=== PATIENT | female | born 1990 | race Caucasian/White ===

== ENCOUNTER → 2016-09-05 | Outpatient (REF) | payer OTHER ==
[~2016-09-05] MED LIST: /MOM400 PO; ACET50TA PO; ANUS2.5C2 TOP; BCP; CEPACOL PO; DOCU10ELUD PO; IBUP80TA PO; MELO15TA4 PO; MULTCAP PO; NORE0.353 PO; PRENTAB66 PO; VITA10006 PO; ZOLO50TA PO; ZYRT10CA PO; [UNRECOGNIZED DRUG - OTHER] PO
== END ==
LOC: M LAB REF 17:00
PROVIDERS: ATTEND Specialist
DX: R87.610 Atypical squamous cells of undetermined significance on cytologic smear of cervix (ASC-US) (principal)

== ENCOUNTER → 2017-02-16 | Outpatient (CLI) | payer OTHER ==
[2017-02-16 13:37] LABS: BASO % 0.3 % (0.0-1.0); EOS % 1.4 % (0.0-3.0); LARGE UNSTAINED CELL % 0.9 % (0.0-4.0); LYMPH # 0.8 K/mm3 (1.5-6.5); LYMPH % 23.9 % (24.0-44.0); MEAN CORPUSCULAR HEMOGLOBIN 30.4 pg (27.0-33.0); MEAN CORPUSCULAR HGB CONC 33.8 g/dl (32.0-36.5); MEAN CORPUSCULAR VOLUME 89.9 fl (80.0-96.0); MONO # 0.2 K/mm3 (0.0-0.8); NEUTROPHILS # 2.3 K/mm3 (1.8-7.7); NEUTROPHILS % 68.5 % (36.0-66.0); PLATELET COUNT, AUTOMATED 227 k/mm3 (150-450); RED CELL DISTRIBUTION WIDTH 12.7 % (11.5-14.5); WHITE BLOOD COUNT 3.4 K/mm3 (4.0-10.0)
[2017-02-16 14:07] LABS: HBsAg Prenatal NEGATIVE (NEGATIVE)
== END ==
LOC: M SMT 09:10
PROVIDERS: ATTEND Specialist
DX: Z36 Encounter for antenatal screening of mother (principal); Z3A.00 Weeks of gestation of pregnancy not specified

== ENCOUNTER → 2017-03-06 | Outpatient (REF) | payer OTHER | LOC: M LAB REF 17:07 | PROVIDERS: ATTEND Obstetrics & Gynecology | DX: Z36 Encounter for antenatal screening of mother (principal); Z3A.00 Weeks of gestation of pregnancy not specified ==

== ENCOUNTER → 2017-04-20 | Outpatient (CLI) | payer OTHER ==
--- NOTE | 2017-04-20 14:08 | REP ---
Obstetric sonography: History: Supervision of for anatomy. Findings: Scanning through the gravid uterus demonstrates a viable single intrauterine gestation in a variable lie. motion is observed and heart rate is recorded at 147 beats per minute. A posterior right-sided placenta is seen grade 0 without evidence of previa. Amniotic fluid is subjectively normal. Closed cervical length viewed transabdominally is 3.7 cm. No extrauterine abnormality is observed. nose and lips are seen but facial profile is less than optimally seen. Left ventricular cardiac outflow tract, diaphragm and spine imaging was less than optimal due to position. The following additional anatomic structures are identified and felt to be unremarkable today: cranium, choroid plexus, cavum, cerebellum and posterior fossa, lungs, four-chamber heart with right ventricular outflow tract view, left-sided stomach, abdominal wall cord insertion, three-vessel umbilical cord, kidneys and bladder, upper and lower extremities. Biometry chart: BPD 4.3 cm = 19 weeks 0 days Head circumference 15.6 cm = 18 weeks 4 days Abdominal circumference 12.9 cm = 18 weeks 3 days Femur length 2.8 cm = 18 weeks 4 days Humeral length 2.8 cm = 19 weeks 0 days Cerebellar diameter 1.9 cm = 18 weeks 4 days HC/AC ratio normal 1.21. Cephalic index normal 0.77. Estimated weight 244 grams, 0 pounds 8 ounces, 47th percentile for 18 weeks 4 days. Impression: Viable single intrauterine gestation at 18 weeks 4 days by today's composite sonographic criteria. [place] by today's sonography September 17, 2017. Facial profile, left ventricular outflow tract view, diaphragm, and spine are less than optimally visualized due to lie. Signed by Josr Wan MD 04/20/2017 04:50 P
== END ==
LOC: M SMT 10:45
PROVIDERS: ATTEND Specialist
DX: Z34.82 Encounter for supervision of other normal pregnancy, second trimester (principal); Z36.89 Encounter for other specified antenatal screening; Z3A.18 18 weeks gestation of pregnancy

== ENCOUNTER → 2017-06-20 | Outpatient (CLI) | payer OTHER | LOC: M SMT 10:59 | DX: Z34.82 Encounter for supervision of other normal pregnancy, second trimester (principal); Z36.2 Encounter for other antenatal screening follow-up; Z3A.27 27 weeks gestation of pregnancy | CPT/HCPCS: 76816 ==

== ENCOUNTER → 2017-07-16 | Outpatient (REF) | payer OTHER | LOC: M SFHCCLAY 16:39 | DX: R19.7 Diarrhea, unspecified (principal) ==

== ENCOUNTER → 2017-07-19 | Outpatient (CLI) | payer OTHER ==
[2017-07-19 14:14] LABS: BASO % 0.2 % (0.0-1.0); EOS # 0.1 10^3/uL (0.0-0.50); EOS % 1.4 % (0.0-3.0); HEMATOCRIT 35.1 % (36.0-47.0); HEMOGLOBIN 11.6 g/dl (12.0-16.0); IMMATURE GRANULOCYTE % 0.2 % (0-3.0); LYMPH # 1.1 10^3/uL (1.5-6.5); LYMPH % 25.2 % (24.0-44.0); MEAN CORPUSCULAR HEMOGLOBIN 30.4 pg (27.0-33.0); MEAN CORPUSCULAR VOLUME 92.1 fl (80.0-96.0); MONO # 0.3 10^3/uL (0.0-0.8); MONO % 6.8 % (0.0-5.0); NEUTROPHILS # 2.9 10^3/uL (1.8-7.7); NEUTROPHILS % 66.2 % (36.0-66.0); PLATELET COUNT, AUTOMATED 226 10^3/uL (150-450); RED BLOOD COUNT 3.81 10^6/uL (4.00-5.40); RED CELL DISTRIBUTION WIDTH 13.8 % (11.5-14.5); WHITE BLOOD COUNT 4.4 10^3/uL (4.0-10.0)
[2017-07-19 14:49] LABS: ALBUMIN/GLOBULIN RATIO 0.97 (1.00-1.93); ALKALINE PHOSPHATASE 80 U/L (45-117); ALT/SGPT 14 U/L (12-78); ANION GAP 8 MEQ/L (8-16); AST/SGOT 15 U/L (7-37); BILIRUBIN,TOTAL 0.5 MG/DL (0.2-1.0); BLOOD UREA NITROGEN 4 MG/DL (7-18); CALCIUM LEVEL 8.2 MG/DL (8.5-10.1); CARBON DIOXIDE LEVEL 26 MEQ/L (21-32); CHLORIDE LEVEL 108 MEQ/L (98-107); FREE T4 1.05 NG/DL (0.76-1.46); GLOMERULAR FILTRATION RATE > 60.0 (>60); GLUCOSE, FASTING 65 MG/DL (70-100); POTASSIUM SERUM 3.7 MEQ/L (3.5-5.1); SODIUM LEVEL 142 MEQ/L (136-145); THYROID STIMULATING HORMONE 0.564 uIU/ML (0.358-3.740); TOTAL PROTEIN 6.1 GM/DL (6.4-8.2)
[2017-07-21 00:06] LABS: TISSUE TRANSGLUTAMINASE IgA <2 U/mL (0-3)
== END ==
LOC: M SMT 10:22
DX: K59.1 Functional diarrhea (principal)
CPT/HCPCS: 84443

== ENCOUNTER → 2017-08-24 | Outpatient (REF) | payer OTHER | LOC: M LAB REF 12:26 | DX: Z34.83 Encounter for supervision of other normal pregnancy, third trimester (principal) | CPT/HCPCS: 87081 ==

== ENCOUNTER → 2017-08-31 | Outpatient (CLI) | payer OTHER ==
[2017-08-31 12:57] LABS: BASO % 0.2 % (0.0-1.0); EOS % 0.7 % (0.0-3.0); HEMATOCRIT 33.3 % (36.0-47.0); HEMOGLOBIN 11.1 g/dl (12.0-16.0); IMMATURE GRANULOCYTE % 0.4 % (0-3.0); LYMPH % 17.2 % (24.0-44.0); MEAN CORPUSCULAR HEMOGLOBIN 30.9 pg (27.0-33.0); MEAN CORPUSCULAR HGB CONC 33.3 g/dl (32.0-36.5); MEAN CORPUSCULAR VOLUME 92.8 fl (80.0-96.0); MONO # 0.4 10^3/uL (0.0-0.8); MONO % 6.9 % (0.0-5.0); NEUTROPHILS # 4.1 10^3/uL (1.8-7.7); NEUTROPHILS % 74.6 % (36.0-66.0); PLATELET COUNT, AUTOMATED 181 10^3/uL (150-450); RED BLOOD COUNT 3.59 10^6/uL (4.00-5.40); RED CELL DISTRIBUTION WIDTH 14.5 % (11.5-14.5); WHITE BLOOD COUNT 5.5 10^3/uL (4.0-10.0)
[2017-08-31 13:05] LABS: GLUCOSE CHALLENGE TEST 1 HOUR 120 MG/DL (LESS THAN 140)
== END ==
LOC: M LAB 10:58
DX: Z34.82 Encounter for supervision of other normal pregnancy, second trimester (principal); Z36.89 Encounter for other specified antenatal screening
CPT/HCPCS: 82950

== ENCOUNTER 2018-04-25 10:06 | Emergency (ER) | payer OTHER | END 2018-04-25 11:54 | disposition home or self-care (01) | LOC: M ED 10:06 | DX: M54.42 Lumbago with sciatica, left side (principal); Z79.899 Other long term (current) drug therapy; Z88.1 Allergy status to other antibiotic agents; Z88.5 Allergy status to narcotic agent | CPT/HCPCS: 72110 ==

== ENCOUNTER → 2018-05-13 | Outpatient (REF) | payer OTHER | LOC: M SFHCLERA 09:39 | DX: B07.9 Viral wart, unspecified (principal) ==

== ENCOUNTER → 2018-07-30 | Outpatient (REF) | payer OTHER ==
[~2018-07-30] MED LIST changes: +ACET1TAB55 PO; +IBUP-1114 PO; +MAPA500T2 PO; +MELO15TA28 PO; -MELO15TA4 PO; +PRED20TA PO; +PRENTAB9 PO
[2018-08-03 14:09] LABS: HPV HYBRID CAPTURE II Positive (Negative)
== END ==
LOC: M LAB REF 13:10
PROVIDERS: ATTEND Specialist
DX: R87.612 Low grade squamous intraepithelial lesion on cytologic smear of cervix (LGSIL) (principal); Z12.4 Encounter for screening for malignant neoplasm of cervix; Z11.51 Encounter for screening for human papillomavirus (HPV)

== ENCOUNTER → 2018-10-09 | Outpatient (REF) | payer OTHER ==
[~2018-10-09] MED LIST changes: -/MOM400 PO; -ACET50TA PO; -DOCU10ELUD PO; +DOCU5LIQ PO; +MAPA500T17 PO; +MILK10SU PO; +OMEP20TA86 PO; +SERT-155; -[UNRECOGNIZED DRUG - OTHER] PO
== END ==
LOC: M LAB REF 13:34
PROVIDERS: ATTEND Specialist
DX: R87.612 Low grade squamous intraepithelial lesion on cytologic smear of cervix (LGSIL) (principal)

== ENCOUNTER 2018-10-12 08:40 | Emergency (ER) | payer OTHER ==
[~2018-10-12] VITALS: Ht 177.8 cm; Wt 96.0 kg
[~2018-10-12 08:40] MED LIST changes: -SERT-155
[2018-10-12] MEDS ORDERED: SERT-155 (08:48)
[2018-10-12] MEDS ORDERED: diphenhydrAMINE INJ 50MG/ML VIAL (J1200) IV ONE (09:15)
[2018-10-12] MEDS ORDERED: diphenhydrAMINE INJ 50MG/ML VIAL (J1200) IV STA (09:17)
[2018-10-12] MEDS ORDERED: predniSONE 20 MG TAB PO ONE (09:45)
[2018-10-12 09:46] LABS: BASO % 0.6 % (0.0-1.0); EOS # 0.1 10^3/uL (0.0-0.50); EOS % 2.2 % (0.0-3.0); HEMATOCRIT 41.7 % (36.0-47.0); LYMPH # 1.4 10^3/uL (1.5-6.5); LYMPH % 25.9 % (24.0-44.0); MEAN CORPUSCULAR HEMOGLOBIN 29.7 pg (27.0-33.0); MEAN CORPUSCULAR HGB CONC 33.6 g/dl (32.0-36.5); MEAN CORPUSCULAR VOLUME 88.5 fl (80.0-96.0); MONO # 0.4 10^3/uL (0.0-0.8); MONO % 6.5 % (0.0-5.0); NEUTROPHILS # 3.5 10^3/uL (1.8-7.7); NEUTROPHILS % 64.6 % (36.0-66.0); PLATELET COUNT, AUTOMATED 239 10^3/uL (150-450); RED BLOOD COUNT 4.71 10^6/uL (4.00-5.40); WHITE BLOOD COUNT 5.4 10^3/uL (4.0-10.0)
[2018-10-12 10:03] LABS: BLOOD UREA NITROGEN 12 MG/DL (7-18); CALCIUM LEVEL 8.6 MG/DL (8.5-10.1); CARBON DIOXIDE LEVEL 26 MEQ/L (21-32); CHLORIDE LEVEL 109 MEQ/L (98-107); CREATININE FOR GFR 0.58 MG/DL (0.55-1.30); GLOMERULAR FILTRATION RATE > 60.0 (>60); GLUCOSE, FASTING 78 MG/DL (70-100); SODIUM LEVEL 140 MEQ/L (136-145)
--- NOTE | 2018-10-12 10:20 | REP ---
CHEST, SINGLE VIEW: There is no evidence of acute infiltrate. No pleural effusion is seen. The heart is normal in size. The mediastinal silhouette is unremarkable. The visualized osseous structures are intact. IMPRESSION: No acute pulmonary disease. Electronically Signed by Blaine Torres MD 10/12/2018 03:13 P
[2018-10-12] MEDS ORDERED: PRED20TA PO (10:41)
[2018-10-12 10:50] VITALS: BP 110/56
== END 2018-10-12 10:56 | disposition home or self-care (01) ==
LOC: M ED 08:40
DX: T78.40XA Allergy, unspecified, initial encounter (principal); Y92.9 Unspecified place or not applicable; Y93.9 Activity, unspecified; R21 Rash and other nonspecific skin eruption; L50.9 Urticaria, unspecified; F41.9 Anxiety disorder, unspecified; Z79.899 Other long term (current) drug therapy; Z88.1 Allergy status to other antibiotic agents; Z88.5 Allergy status to narcotic agent
CPT/HCPCS: 71045; 80048; 85025; 93041; 94760; 96374; 99285; J1200

== ENCOUNTER → 2018-11-26 | Outpatient (REF) | payer OTHER ==
[~2018-11-26] MED LIST changes: +OMEP20TA3 PO; -OMEP20TA86 PO; +SERT-155
== END ==
LOC: M LAB REF 17:38
PROVIDERS: ATTEND Specialist
DX: N87.1 Moderate cervical dysplasia (principal)

== ENCOUNTER → 2018-11-28 | Outpatient (CLI) | payer OTHER ==
--- NOTE | 2018-11-28 14:40 | REP ---
Right hip two views : There is no fracture or dislocation. Mineralization and joint spaces are normal. There are no calcifications or foreign bodies. Impression: Negative right hip . Electronically Signed by Blaine Temple MD 11/28/2018 02:31 P
--- NOTE | 2018-11-28 14:44 | REP ---
REASON: Pain after trauma. COMPARISON: None. FINDINGS: No acute fracture or destructive osseous lesion. Electronically Signed by Maximino Vasquez DO 11/28/2018 03:04 P
--- NOTE | 2018-11-28 14:45 | REP ---
REASON: Pain after trauma. COMPARISON: None. FINDINGS: No acute fracture or destructive osseous lesion. Electronically Signed by Maximino Vasquez DO 11/28/2018 03:04 P
[2018-11-28 16:47] LABS: HEMATOCRIT 39.7 % (36.0-47.0); MEAN CORPUSCULAR HEMOGLOBIN 30.9 pg (27.0-33.0); MEAN CORPUSCULAR HGB CONC 32.7 g/dl (32.0-36.5); MEAN CORPUSCULAR VOLUME 94.3 fl (80.0-96.0); PLATELET COUNT, AUTOMATED 240 10^3/uL (150-450); RED BLOOD COUNT 4.21 10^6/uL (4.00-5.40); WHITE BLOOD COUNT 7.3 10^3/uL (4.0-10.0)
[2018-11-28 17:03] LABS: ALBUMIN 3.5 GM/DL (3.2-5.2); ALT/SGPT 20 U/L (12-78); BILIRUBIN,TOTAL 0.3 MG/DL (0.2-1.0); BLOOD UREA NITROGEN 12 MG/DL (7-18); CALCIUM LEVEL 8.5 MG/DL (8.5-10.1); CARBON DIOXIDE LEVEL 28 MEQ/L (21-32); CHLORIDE LEVEL 107 MEQ/L (98-107); CHOLESTEROL LEVEL 117 MG/DL (<200); CHOLESTEROL RISK RATIO 2.659 (<5); CREATININE FOR GFR 0.63 MG/DL (0.55-1.30); GLOMERULAR FILTRATION RATE > 60.0 (>60); GLUCOSE, FASTING 71 MG/DL (70-100); HDL CHOLESTEROL 44 MG/DL (>40); LDL CHOLESTEROL 57 MG/DL (<100); NON-HDL-C 73 MG/DL; SODIUM LEVEL 141 MEQ/L (136-145); THYROID STIMULATING HORMONE 0.394 uIU/ML (0.358-3.740); TOTAL 25(OH) VITAMIN D 36.6 NG/ML (30.0-100.0); TOTAL PROTEIN 6.8 GM/DL (6.4-8.2); TRIGLYCERIDES LEVEL 82 MG/DL (<150)
== END ==
LOC: M WUC 14:02
PROVIDERS: ATTEND Nurse Practitioner Family
DX: K21.9 Gastro-esophageal reflux disease without esophagitis (principal); R53.83 Other fatigue; Z13.6 Encounter for screening for cardiovascular disorders; F32.9 Major depressive disorder, single episode, unspecified; E55.9 Vitamin D deficiency, unspecified; S80.11XD Contusion of right lower leg, subsequent encounter; X58.XXXD Exposure to other specified factors, subsequent encounter

== ENCOUNTER → 2018-12-06 | Outpatient (CLI) | payer OTHER ==
--- NOTE | 2018-12-06 09:34 | REP ---
Clinical: Irregular menstrual cycles. Technique: Transabdominal pelvic ultrasound followed by transvaginal examination for better evaluation of the endometrium and adnexa with color Doppler evaluation of the ovaries. Findings: Retroverted uterus measures 8.1 x 4.0 x 5.7 cm. Endometrial complex measures approximately 3 mm with small echogenic foci in the transitional zone of uncertain etiology - possibly calcifications/chronic change. No further uterine or endometrial abnormalities are appreciated. The bilateral ovaries are normal in appearance and vascularity without torsion. Right ovary measures 2.7 x 1.1 x 1.7 cm (RI 0.51). Left ovary measures 2.1 x 1.1 x 1.7 cm (RI 0.49). Bladder is normal and currently measures 7.6 x 3.3 x 4.4 cm. Impression: Essentially normal pelvic ultrasound. Electronically Signed by Parag Pang MD 12/06/2018 09:25 A
== END ==
LOC: M RAD 08:36
PROVIDERS: ATTEND Specialist
DX: N92.6 Irregular menstruation, unspecified (principal)

== ENCOUNTER → 2019-02-07 | Outpatient (REF) | payer OTHER ==
[~2019-02-07] MED LIST changes: +LEVOTAB10; +OMEP-221; +OMEP-356 PO; -OMEP20TA3 PO; -SERT-155; +SERT50TA29
[2019-02-07 17:13] LABS: APPEARANCE, URINE CLEAR (CLEAR); BACTERIA, URINE AUTO 1+ (NEGATIVE); BILIRUBIN, URINE AUTO NEGATIVE (NEGATIVE); BLOOD, URINE BLOOD NEGATIVE (NEGATIVE); COLOR, URINE YELLOW (YELLOW); GLUCOSE, URINE (UA) AUTO NEGATIVE (NEGATIVE); KETONE, URINE AUTO NEGATIVE (NEGATIVE); LEUKOCYTE ESTERASE, URINE AUTO NEGATIVE (NEGATIVE); MUCUS, URINE SMALL (NEGATIVE); NITRITE, URINE AUTO NEGATIVE (NEGATIVE); PROTEIN, URINE AUTO NEGATIVE (NEGATIVE); RBC, URINE AUTO 1 /HPF (0-3); SQUAMOUS EPITHELIAL CELL UR AU 0 /HPF (0-6); UROBILINOGEN, URINE AUTO 0.2 mg/dL (0.0-2.0); WBC, URINE AUTO 3 /HPF (0-3)
== END ==
LOC: M SFHCCLAY 16:17
PROVIDERS: ATTEND Family Medicine
DX: R35.0 Frequency of micturition (principal)

== ENCOUNTER 2019-03-19 12:58 | Emergency (ER) | payer OTHER ==
[~2019-03-19] VITALS: Ht 177.8 cm; Wt 93.5 kg
[~2019-03-19 12:58] MED LIST changes: -LEVOTAB10; -OMEP-221
[2019-03-19] MEDS ORDERED: LEVOTAB10 (13:08)
[2019-03-19] MEDS ORDERED: OMEP-221 (13:08)
[2019-03-19] MEDS ORDERED: ACETAMINOPHEN TAB 650MG DOSE (2X325MG) PO ONE (13:45)
--- NOTE | 2019-03-19 14:39 | REP ---
CT study of the brain without contrast: History: Head trauma. No comparison brain imaging. Findings: Preliminary director of [employer] work view is unremarkable. Bone window settings demonstrate an intact bony calvarium. No skull fracture is seen. The visualized paranasal sinuses are clear. On soft tissue window settings, the lateral, third, and fourth ventricles are normal in size and position. Torres-white differentiation pattern is normal above below the tentorium. There is no evidence of intracranial hemorrhage. No extra-axial fluid collection is seen. No mass or midline shift is seen. Impression: Negative noncontrast head CT. Electronically Signed by Josr Wan MD 03/19/2019 03:53 P
[2019-03-19 15:19] VITALS: BP 116/70
== END 2019-03-19 15:20 | disposition home or self-care (01) ==
LOC: M ED 12:58
DX: S00.31XA Abrasion of nose, initial encounter (principal); S06.0X0A Concussion without loss of consciousness, initial encounter; W22.03XA Walked into furniture, initial encounter; Y92.89 Other specified places as the place of occurrence of the external cause; G43.909 Migraine, unspecified, not intractable, without status migrainosus; F32.9 Major depressive disorder, single episode, unspecified; F41.9 Anxiety disorder, unspecified; Z88.1 Allergy status to other antibiotic agents; Z88.5 Allergy status to narcotic agent; Z79.899 Other long term (current) drug therapy

== ENCOUNTER → 2019-12-08 | Outpatient (REF) | payer OTHER ==
[~2019-12-08] MED LIST changes: +LEVOTAB10; +OMEP-221
== END ==
LOC: M SFHCWAGY 17:59
PROVIDERS: ATTEND Specialist
DX: Z01.419 Encounter for gynecological examination (general) (routine) without abnormal findings (principal); Z12.4 Encounter for screening for malignant neoplasm of cervix

== ENCOUNTER → 2020-02-16 | Outpatient (CLI) | payer OTHER, MEDICAID ==
--- NOTE | 2020-03-10 08:45 | REP ---
BILATERAL RIB SERIES CLINICAL: Trauma. TECHNIQUE: Frontal view of the chest with eight views of the bilaterally hemithoraces. FINDINGS: Frontal view of the chest demonstrates no acute cardiopulmonary process. Multiple views of the right and left hemithoraces demonstrate no fracture or rib pathology. IMPRESSION: Normal examination. No evidence for acute rib injury or pathology. MTDD
== END ==
LOC: M WUC 09:06
PROVIDERS: ATTEND Physician Assistant
DX: S20.212A Contusion of left front wall of thorax, initial encounter (principal); S20.211A Contusion of right front wall of thorax, initial encounter; X58.XXXA Exposure to other specified factors, initial encounter; Y92.9 Unspecified place or not applicable

== ENCOUNTER 2020-04-08 08:30 | Outpatient (RCR) | payer OTHER | END 2020-04-10 | LOC: M PT 08:30 | PROVIDERS: ATTEND Otolaryngology | DX: M26.609 Unspecified temporomandibular joint disorder, unspecified side (principal) ==

== ENCOUNTER 2020-05-03 11:45 | Outpatient (RCR) | payer OTHER | END 2020-05-10 | LOC: M PT 11:45 | PROVIDERS: ATTEND Otolaryngology | DX: M26.69 Other specified disorders of temporomandibular joint (principal) ==

== ENCOUNTER → 2020-07-15 | Outpatient (CLI) | payer OTHER ==
--- NOTE | 2020-07-15 09:02 | REP ---
INDICATION: N64.4 LT BREAST MASTODYNIA. COMPARISON: None. TECHNIQUE: Targeted left breast sonography. FINDINGS: Scanning of the retroareolar region of the left breast shows 2 or 3 mildly prominent ducts without echogenic intraluminal content. The largest duct is 2.5 mm in diameter. Mildly heterogeneous background echotexture is seen. No cyst, mass, or suspicious acoustic shadowing. IMPRESSION: BI-RADS category 2 benign findings. One or 2 prominent retroareolar ducts. Otherwise normal. Clinical follow-up is advised. <Electronically signed by Crow Wan > 07/15/20 [id number]
== END ==
LOC: M WHC 06:32
PROVIDERS: ATTEND Nurse Practitioner Family
DX: N64.4 Mastodynia (principal)

== ENCOUNTER → 2021-05-25 | Outpatient (CLI) | payer OTHER, MEDICAID ==
--- NOTE | 2021-05-25 16:38 | REP ---
INDICATION: Focal breast pain COMPARISON: None TECHNIQUE: Real-time sonographic evaluation of the left breast as described above. FINDINGS: There are no cystic or solid masses. IMPRESSION: ACR category 0 negative breast ultrasound. Follow-up with dedicated diagnostic left mammogram. <Electronically signed by Maximino Vasquez > 05/25/21 [id number]
--- NOTE | 2021-05-26 00:07 | REP ---
INDICATION: MASS OF RIGHT FOREARM COMPARISON: None TECHNIQUE: Realtime grayscale ultrasound examination using linear high-frequency transducer. FINDINGS: Directed ultrasound examination along the right forearm overlying the area of palpable mass demonstrates an ovoid 17 x 4 x 14 mm slightly hyperechoic avascular homogeneous lesion likely representing lipoma. IMPRESSION: Small ovoid hyperechoic lesion suggesting lipoma. <Electronically signed by Parag Pang > 05/25/21 [id number]
== END ==
LOC: M WHC 13:26
PROVIDERS: ATTEND Nurse Practitioner Family
DX: N63.20 Unspecified lump in the left breast, unspecified quadrant (principal); R22.31 Localized swelling, mass and lump, right upper limb

== ENCOUNTER → 2021-06-30 | Outpatient (REF) | payer OTHER, MEDICAID ==
[~2021-06-30] MED LIST changes: -OMEP-221; +OMEP40CA5
== END ==
LOC: M LAB REF 16:15
PROVIDERS: ATTEND Surgery
DX: D17.21 Benign lipomatous neoplasm of skin and subcutaneous tissue of right arm (principal)

== ENCOUNTER → 2021-07-15 | Outpatient (CLI) | payer OTHER, MEDICAID | LOC: M WHC 08:44 | PROVIDERS: ATTEND Nurse Practitioner Family | DX: N63.20 Unspecified lump in the left breast, unspecified quadrant (principal) | CPT/HCPCS: 76642; 77065; G0279 ==

== ENCOUNTER → 2022-09-29 | Outpatient (REF) | payer OTHER, MEDICAID ==
[2022-09-29 17:37] LABS: ALBUMIN 4.3 G/DL (3.2-5.2); ALKALINE PHOSPHATASE 81 U/L (46-116); ALT/SGPT 16 U/L (7.0-40); AST/SGOT 12 U/L (<34); BILIRUBIN,TOTAL 0.6 MG/DL (0.3-1.2); BLOOD UREA NITROGEN 13 MG/DL (9-23); CARBON DIOXIDE LEVEL 30 MMOL/L (20-31); CHLORIDE LEVEL 106 MMOL/L (98-107); CHOLESTEROL LEVEL 135 MG/DL (<200); CHOLESTEROL RISK RATIO 2.13 (<5); CREATININE FOR GFR 0.61 MG/DL (0.55-1.30); GLOMERULAR FILTRATION RATE > 60.0 (>60); GLUCOSE, FASTING 86 MG/DL (60-100); HDL CHOLESTEROL 63.3 MG/DL (>40); LDL CHOLESTEROL 61.1 MG/DL (<100); NON-HDL-C 71.7 MG/DL; POTASSIUM SERUM 4.2 MMOL/L (3.5-5.1); SODIUM LEVEL 139 MMOL/L (136-145); TOTAL PROTEIN 6.8 G/DL (5.7-8.2); TRIGLYCERIDES LEVEL 53 MG/DL (<150)
[2022-09-29 17:39] LABS: THYROID STIMULATING HORMONE 0.504 uIU/ML (0.55-4.78); TOTAL 25(OH) VITAMIN D 29.1 NG/ML (20.0-100.0)
[2022-09-29 17:40] LABS: HEMOGLOBIN A1c 4.7 % (4.0-6.0)
[2022-09-29 17:58] LABS: BASO % 0.4 % (0.0-1.0); EOS # 0.2 10^3/uL (0.0-0.5); EOS % 3.2 % (0.0-3.0); HEMATOCRIT 42.2 % (36.0-47.0); HEMOGLOBIN 13.9 g/dl (12.0-15.5); LYMPH % 20.7 % (24.0-44.0); MEAN CORPUSCULAR HEMOGLOBIN 31.4 pg (27.0-33.0); MEAN CORPUSCULAR HGB CONC 32.9 g/dl (32.0-36.5); MEAN CORPUSCULAR VOLUME 95.3 fl (80.0-96.0); MONO # 0.3 10^3/uL (0.0-0.8); MONO % 7.1 % (2.0-8.0); NEUTROPHILS # 3.2 10^3/uL (1.5-8.5); NEUTROPHILS % 68.4 % (36.0-66.0); PLATELET COUNT, AUTOMATED 272 10^3/uL (150-450); RED BLOOD COUNT 4.43 10^6/uL (4.00-5.40); WHITE BLOOD COUNT 4.7 10^3/uL (4.0-10.0)
[2022-09-29 18:25] LABS: ERYTHROCYTE SEDIMENTATION RATE 2 mm/hr (0-20)
== END ==
LOC: M LAB REF 16:13
PROVIDERS: ATTEND Nurse Practitioner Family
DX: E66.3 Overweight (principal); E55.9 Vitamin D deficiency, unspecified; Z11.9 Encounter for screening for infectious and parasitic diseases, unspecified; L60.8 Other nail disorders; R53.83 Other fatigue

== ENCOUNTER → 2023-01-23 | Outpatient (CLI) | payer MEDICAID | LOC: M OUTALCOH 07:37 | PROVIDERS: ATTEND Psychiatry & Neurology Psychiatry | DX: Z03.89 Encounter for observation for other suspected diseases and conditions ruled out (principal) ==

== ENCOUNTER → 2023-02-06 | Outpatient (REF) | payer MEDICAID ==
[2023-02-06 16:01] LABS: THYROID STIMULATING HORMONE 1.18 uIU/ML (0.55-4.78); TOTAL 25(OH) VITAMIN D 31.1 NG/ML (20.0-100.0)
== END ==
LOC: M LAB REF 11:58
PROVIDERS: ATTEND Nurse Practitioner Family
DX: E55.9 Vitamin D deficiency, unspecified (principal); R89.1 Abnormal level of hormones in specimens from other organs, systems and tissues

== ENCOUNTER → 2023-02-08 | Outpatient (RCR) | payer MEDICAID | LOC: M OUTALCOH 02-05 15:56 | PROVIDERS: ATTEND Psychiatry & Neurology Psychiatry | DX: F10.20 Alcohol dependence, uncomplicated (principal); Z72.0 Tobacco use ==

== ENCOUNTER → 2023-03-16 | Outpatient (REF) | payer MEDICAID ==
[2023-03-16 18:13] LABS: HCG, SERUM QUALITATIVE NEGATIVE (NEGATIVE)
[2023-03-16 18:14] LABS: BLOOD UREA NITROGEN 7 MG/DL (9-23); CALCIUM LEVEL 8.9 MG/DL (8.5-10.1); CARBON DIOXIDE LEVEL 29 MMOL/L (20-31); CHLORIDE LEVEL 106 MMOL/L (98-107); CREATININE FOR GFR 0.66 MG/DL (0.55-1.30); GLOMERULAR FILTRATION RATE > 60.0 (>60); GLUCOSE, FASTING 89 MG/DL (60-100); POTASSIUM SERUM 3.9 MMOL/L (3.5-5.1); SODIUM LEVEL 140 MMOL/L (136-145)
[2023-03-16 18:17] LABS: FOLLICLE STIMULATING HORMONE 7.8 mIU/ML; LUTEINIZING HORMONE 4.5 mIU/ML; PROLACTIN 7.49 NG/ML; THYROID STIMULATING HORMONE 0.409 uIU/ML (0.55-4.78)
== END ==
LOC: M LAB REF 17:45
PROVIDERS: ATTEND Nurse Practitioner Family
DX: N64.3 Galactorrhea not associated with childbirth (principal)

== ENCOUNTER → 2023-03-22 | Outpatient (REF) | payer OTHER, MEDICAID ==
[2023-03-22 20:21] LABS: GC DNA AMPLIFICATION NEGATIVE (NEGATIVE)
== END ==
LOC: M LAB REF 16:28
PROVIDERS: ATTEND Nurse Practitioner Family
DX: R30.0 Dysuria (principal)

== ENCOUNTER → 2023-04-05 | Outpatient (CLI) | payer OTHER | LOC: M WHC 12:53 | PROVIDERS: ATTEND Nurse Practitioner Family | DX: M25.562 Pain in left knee (principal) ==

== ENCOUNTER → 2023-04-05 | Outpatient (CLI) | payer OTHER | LOC: M PLAIMG 11:35 | PROVIDERS: ATTEND Nurse Practitioner Family | DX: M25.562 Pain in left knee (principal) ==

== ENCOUNTER 2023-04-09 16:00 | Outpatient (RCR) | payer MEDICAID | END 2023-04-10 | LOC: M OUTALCOH 16:00 | PROVIDERS: ATTEND Psychiatry & Neurology Psychiatry | DX: F10.20 Alcohol dependence, uncomplicated (principal); Z72.0 Tobacco use ==

== ENCOUNTER 2023-05-31 08:00 | Outpatient (RCR) | payer MEDICAID | END 2023-06-10 | LOC: M OUTALCOH 08:00 | PROVIDERS: ATTEND Psychiatry & Neurology Psychiatry | DX: F10.20 Alcohol dependence, uncomplicated (principal); Z72.0 Tobacco use ==

== ENCOUNTER 2023-07-10 08:58 | Outpatient (RCR) | payer MEDICAID | END 2023-07-11 | LOC: M OUTALCOH 08:58 | PROVIDERS: ATTEND Psychiatry & Neurology Psychiatry | DX: F10.20 Alcohol dependence, uncomplicated (principal); Z72.0 Tobacco use ==

== ENCOUNTER → 2023-11-11 | Outpatient (REF) | payer OTHER | LOC: M LAB REF 16:47 | PROVIDERS: ATTEND Registered Nurse | DX: N39.0 Urinary tract infection, site not specified (principal) ==

== ENCOUNTER 2024-04-17 13:30 | Emergency (ER) | payer OTHER ==
[~2024-04-17] VITALS: Ht 177.8 cm; Wt 99.8 kg
[2024-04-17] MEDS: ONDANSETRON 4MG 2ML VIAL IV ONE (14:59)
[2024-04-17] MEDS: KETOROLAC 30 MG/ML 1ML VIAL IV ONE (15:01)
[2024-04-17 15:10] LABS: BASO % 0.5 % (0.0-1.0); EOS # 0.1 10^3/uL (0.0-0.5); EOS % 1.8 % (0.0-3.0); HEMOGLOBIN 13.4 g/dl (12.0-15.5); LYMPH # 1.4 10^3/uL (1.5-5.0); LYMPH % 25.4 % (24.0-44.0); MEAN CORPUSCULAR HEMOGLOBIN 30.3 pg (27.0-33.0); MEAN CORPUSCULAR HGB CONC 33.5 g/dl (32.0-36.5); MEAN CORPUSCULAR VOLUME 90.5 fl (80.0-96.0); MONO # 0.3 10^3/uL (0.0-0.8); NEUTROPHILS # 3.8 10^3/uL (1.5-8.5); NEUTROPHILS % 66.1 % (36.0-66.0); PLATELET COUNT, AUTOMATED 277 10^3/uL (150-450); RED BLOOD COUNT 4.42 10^6/uL (4.00-5.40); WHITE BLOOD COUNT 5.7 10^3/uL (4.0-10.0)
[2024-04-17 15:30] LABS: Trichomonas vaginalis (AMP) NOT DETECTED (NEGATIVE)
[2024-04-17 15:31] LABS: HCG, SERUM QUALITATIVE NEGATIVE (NEGATIVE)
[2024-04-17 15:32] LABS: ALBUMIN 3.9 G/DL (3.2-5.2); ALKALINE PHOSPHATASE 82 U/L (35-104); ALT/SGPT 21 U/L (7.0-40); AST/SGOT 15 U/L (<34); BILIRUBIN,DIRECT 0.2 MG/DL (<0.4); BILIRUBIN,TOTAL 0.5 MG/DL (0.3-1.2); BLOOD UREA NITROGEN 11 MG/DL (9-23); CALCIUM LEVEL 9.9 MG/DL (8.5-10.1); CARBON DIOXIDE LEVEL 28 MMOL/L (20-31); CHLORIDE LEVEL 107 MMOL/L (98-107); CREATININE FOR GFR 0.98 MG/DL (0.55-1.30); GLOMERULAR FILTRATION RATE > 60.0 (>60); GLUCOSE, FASTING 90 MG/DL (60-100); POTASSIUM SERUM 3.9 MMOL/L (3.5-5.1); SODIUM LEVEL 141 MMOL/L (136-145)
[2024-04-17 15:54] LABS: GC DNA AMPLIFICATION NEGATIVE (NEGATIVE)
[2024-04-17] MEDS ORDERED: ISOVUE-370 76% 100ML VIAL As Ordered ONE (16:30)
[2024-04-17 17:45] VITALS: BP 135/70; TEMP 97.8; O2SAT 99
== END 2024-04-17 17:54 | disposition home or self-care (01) ==
LOC: M ED 13:30
DX: N94.89 Other specified conditions associated with female genital organs and menstrual cycle (principal); J45.909 Unspecified asthma, uncomplicated; F41.9 Anxiety disorder, unspecified; F17.290 Nicotine dependence, other tobacco product, uncomplicated; Z88.1 Allergy status to other antibiotic agents; Z88.5 Allergy status to narcotic agent; Z79.1 Long term (current) use of non-steroidal anti-inflammatories (NSAID); Z79.899 Other long term (current) drug therapy
CPT/HCPCS: 74177; 76830; 76856; 80048; 80076; 81001; 84703; 85025; 87661; 87810; 87850; 93976; 96374; 96375; 99284; J1885; J2405; Q9967

== ENCOUNTER → 2024-09-25 | Outpatient (REF) | payer OTHER ==
[2024-09-25 13:37] LABS: THYROID STIMULATING HORMONE 0.279 uIU/ML (0.55-4.78)
== END ==
LOC: M LAB REF 12:42
PROVIDERS: ATTEND Nurse Practitioner Family
DX: E66.3 Overweight (principal); E55.9 Vitamin D deficiency, unspecified; Z68.28 Body mass index [BMI] 28.0-28.9, adult

== ENCOUNTER → 2024-10-02 | Outpatient (REF) | payer OTHER ==
[2024-10-02 18:08] LABS: FREE T4 0.91 NG/DL (0.89-1.76); TOTAL T3 118.5 NG/DL (60.0-181.0)
[2024-10-02 18:09] LABS: THYROID STIMULATING HORMONE 0.435 uIU/ML (0.55-4.78)
== END ==
LOC: M LAB REF 16:43
PROVIDERS: ATTEND Nurse Practitioner Family
DX: E05.90 Thyrotoxicosis, unspecified without thyrotoxic crisis or storm (principal)

== ENCOUNTER → 2024-10-09 | Outpatient (CLI) | payer OTHER | LOC: M RAD 13:25 | PROVIDERS: ATTEND Nurse Practitioner Family | DX: E05.90 Thyrotoxicosis, unspecified without thyrotoxic crisis or storm (principal) ==

== ENCOUNTER → 2024-12-17 | Outpatient (CLI) | payer OTHER ==
[~2024-12-17] MED LIST changes: +ARIP1TAB10 PO; +BUPR75TA5 PO; +GABA-1172 PO; +LIDOCAINE 1% MDV 20 ML VIAL As Ordered ONE; +MAGN200T PO; +OMEP1CAP73 PO; +THERTAB52 PO; +VITA100093 PO; +ZOLO100T PO
[2024-12-17 15:00] VITALS: TEMP 97.7
[2024-12-17 15:32] VITALS: BP 126/72; O2SAT 100
== END ==
LOC: M IRPRO 14:55
PROVIDERS: ATTEND Nurse Practitioner Family
DX: E04.2 Nontoxic multinodular goiter (principal)

== ENCOUNTER → 2025-05-14 | Outpatient (REF) | payer OTHER ==
[~2025-05-14] MED LIST changes: +BUPR-363 PO; -BUPR75TA5 PO; -LIDOCAINE 1% MDV 20 ML VIAL As Ordered ONE
[2025-05-15 13:14] LABS: CALCIUM LEVEL 8.6 MG/DL (8.5-10.1); CARBON DIOXIDE LEVEL 28 MMOL/L (20-31); CHLORIDE LEVEL 105 MMOL/L (98-107); CREATININE FOR GFR 0.72 MG/DL (0.55-1.30); GLOMERULAR FILTRATION RATE > 90.0 (>60); POTASSIUM SERUM 3.9 MMOL/L (3.5-5.1); SODIUM LEVEL 142 MMOL/L (136-145)
[2025-05-15 13:36] LABS: ESTIMATED AVERAGE GLUCOSE 97.0 MG/DL (60-110)
== END ==
LOC: M LAB REF 12:13
PROVIDERS: ATTEND Nurse Practitioner Family
DX: R63.5 Abnormal weight gain (principal)